=== PATIENT | male | born 1990 | race Caucasian/White ===

== ENCOUNTER → 2020-02-11 09:05 | Outpatient (CLI) | payer OTHER, SELFPAY ==
--- NOTE | 2020-02-11 | DI.MRI.S_ITS ---
PROCEDURE: MR CERVICAL SPINE WO CON INDICATIONS: Cervicalgia TECHNIQUE: Noncontrast sagittal T1 spin echo and T2 fast spin echo, sagittal STIR, foraminal oblique sagittal T2 fast spin echo, and axial gradient echo or T2 fast spin echo through the cervical spine. COMPARISON: None. FINDINGS: Image quality: Excellent. Alignment and Curvature: There is normal bony alignment. Bone Marrow: Multilevel degenerative endplate sclerosis and spurring. Diffuse facet arthropathy. No fracture Spinal Cord: Visualized spinal cord has normal size and signal. No cerebellar tonsillar herniation. Paraspinous Soft Tissues: No paravertebral masses. Prevertebral soft tissues are normal in thickness. C2-C3: Normal appearance. C3-C4: Minimal left foraminal narrowing. No canal or right foraminal stenosis. C4-C5: Normal appearance. C5-C6: Minimal canal narrowing. No foraminal stenosis. C6-C7: Minimal canal narrowing. No foraminal stenosis C7-T1: No canal or right foraminal narrowing. Mild left foraminal stenosis. IMPRESSION: Minimal lower cervical spondylosis and facet disease. Overall, no high-grade canal narrowing. Mild left foraminal stenosis Dictated by: Anatoliy Harrison M.D. on 02/11/2020 at 10:21 Approved by: Anatoliy Harrison M.D. on 02/11/2020 at 10:26
== END ==
PROVIDERS: Referring Provider Family Medicine; Visit Provider Family Medicine
DX: M54.2 Cervicalgia (principal); M48.02 Spinal stenosis, cervical region; R20.2 Paresthesia of skin
CPT/HCPCS: 72141

== ENCOUNTER → 2021-03-14 18:00 | Outpatient (CLI) | payer OTHER, SELFPAY | PROVIDERS: Referring Provider Internal Medicine; Visit Provider Internal Medicine | DX: Z23 Encounter for immunization (principal) | CPT/HCPCS: 90471; 90686 ==

== ENCOUNTER → 2021-04-25 17:11 | Outpatient (ROUT) | payer OTHER, SELFPAY ==
[2021-04-25 18:50] LABS: Urine N gonorrhoeae NOT DETECTED
[2021-04-25 21:04] LABS: Urine Chlamydia NOT DETECTED
== END ==
PROVIDERS: Visit Provider Nurse Practitioner Family
DX: Z11.3 Encounter for screening for infections with a predominantly sexual mode of transmission (principal)
CPT/HCPCS: 87491; 87591

== ENCOUNTER 2021-06-16 23:16 | Emergency (ER) | payer OTHER, SELFPAY ==
[2021-06-16 23:22] VITALS: BP 143/87; PULSE 92; RESP 18; TEMP 36.4; O2SAT 97
--- NOTE | 2021-06-17 00:30 | ED.ALLEREA ---
HPI - Allergic Reaction General Chief complaint: Allergic Reaction Stated complaint: allergic reaction to something hives Time Seen by Provider: 06/17/21 00:26 Mode of arrival: Ambulatory History of Present Illness HPI narrative: Patient is a 30-year-old male history of bipolar presents today with hives. He started having hives on his trunk and arms it is slowly improving in the emergency department. He has no shortness of breath tongue swelling or difficulty swallowing. he has sensitive skin in the history unclear with laundry detergent no changes. Related Data Home Medications Medication Instructions Recorded Confirmed doxepin 10 mg capsule 10 mg PO DAILY 11/11/20 11/11/20 emtricitabine 200 mg-tenofovir 1 tab PO DAILY 11/11/20 11/11/20 disoproxil fumarate 300 mg tablet (Truvada) prazosin See Rx Instructions PO .COMPLEX 11/11/20 Previous Rx's Medication Instructions Recorded prednisone 20 mg tablet 20 mg PO DAILY #3 tab 06/17/21 Allergies Allergy/AdvReac Type Severity Reaction Status Date / Time No Known Drug Allergies Allergy Unverified 03/18/21 13:05 Review of Systems Review of Systems Narrative: GENERAL: Denies chills, fatigue, malaise, fever, sweats, travel HEENT: Denies sinus pain, ear pain, sore throat, difficulty swallowing, neck pain RESPIRATORY: Denies dyspnea, cough, wheezing, hemoptysis, sputum. CARDIOVASCULAR: Denies chest pain, palpitations, orthopnea, edema GASTROINTESTINAL: Denies nausea, vomiting, abdominal pain, diarrhea, constipation, melena. : Denies dysuria, frequency, incontinence, hematuria, urinary retention, flank pain. MUSCULOSKELETAL: Denies weakness, joint pain, or bony pain SKIN: See HPI NEUROLOGIC: Denies weakness, dizziness, headache, numbness, change in speech, confusion PSYCHIATRIC: No concerning psychosocial issues. 12 point review of systems is negative except for those stated above and HPI Patient History Social History Smoking Status: Never smoker Smoking Status: Never smoker alcohol intake frequency: holidays/special occasions only Substance Use Type: does not use Exam Initial Vital Signs Initial Vital Signs: Vital Signs Temperature 97.5 F L 06/16/21 23:22 Pulse Rate 92 H 06/16/21 23:22 Respiratory Rate 18 06/16/21 23:22 Blood Pressure 143/87 H 06/16/21 23:22 Pulse Oximetry 97 06/16/21 23:22 GENERAL: Well-appearing, well-nourished and in no acute distress. PHARYNX:No erythema, no tonsillar exudate, no cervical lymphadenopathy CARDIOVASCULAR: Regular rate and rhythm without murmurs, rubs or gallops. RESPIRATORY: Breath sounds equal bilaterally, no wheezes rales or rhonchi. EXTREMITIES: Normal range of motion, no clubbing or edema. Neurovascularly intact NEUROLOGICAL: Alert and oriented x4. SKIN: Mild hive is noted on trunk seem to be improving based on previous pictures Course Orders Ordered: Discontinued Medications Prednisone (Prednisone 20 Mg Tablet) 20 mg PO NOW ONE Stop: 06/17/21 01:11 Last Admin: 06/17/21 01:24 Dose: 20 mg Documented by: YADIEL Vital Signs Vital signs: Vital Signs - 8 hr 06/16/21 23:22 Temperature 97.5 F L Pulse Rate 92 H Respiratory Rate 18 Blood Pressure 143/87 H Pulse Oximetry 97 MDM - Allergic Reaction MDM Narrative Medical decision making narrative: Patient has no sign of angioedema. Hives seem to be improving without treatment. He states that he does not want Benadryl cassette causes hallucinations in combination with his other medication. He is willing to take prednisone. I did talk about possible steroid psychosis. I recommend he take 1 dose here in the ER in if his symptoms have improved completely tomorrow that he shouldnt take any more. Discharge Plan Departure Patient Disposition: Home Clinical Impression: Urticaria Instructions: DI for Hives Activity Restrictions/Additional Instructions: *You have been diagnosed with allergic reaction, hives *What to do: At this time is unclear what your allergic to, recommend allergy test *Continue to take medications as directed Prednisone 20 mg once a day for 3 days if no improvement after tonight dose -->SENT TO [facility] *Follow up with your primary care provider in 2-3 days or call [phone] *Return to ER if you should have increased difficulty breathing tongue swelling lip swelling worsening rash or any new, worsening or concerning symptoms Prescriptions: New prednisone 20 mg tablet 20 mg PO DAILY Qty: 3 0RF No Action emtricitabine-tenofovir (TDF) [Truvada] 200-300 mg tablet 1 tab PO DAILY 0RF prazosin See Rx Instructions PO .COMPLEX 0RF Rx Instructions: 6mg PO; doxepin 10 mg capsule 10 mg PO DAILY 0RF Referrals: Miscellaneous,Doctor, MD [Primary Care Provider] -
[2021-06-17] MEDS: predniSONE 20 MG TABLET PO (01:24)
== END 2021-06-17 01:30 | disposition home or self-care (01) ==
PROVIDERS: Emergency Provider Emergency Medicine
DX: L50.9 Urticaria, unspecified (principal)
CPT/HCPCS: 99283